=== PATIENT | female | born 1985 | race Caucasian/White ===

== ENCOUNTER 2018-05-10 10:04 | Emergency (ER) | payer MEDICAID ==
[~2018-05-10] VITALS: Ht 172.7 cm; Wt 79.4 kg
[2018-05-10 10:09] VITALS: Ht 172.7 cm; Wt 79.4 kg
[2018-05-10 11:40] LABS: BASOPHIL % 0.3 % (0-2); PLATELET COUNT 236 x10^3mcL (130-400); RED CELL DISTRIBUTION WIDTH 13.4 % (11.5-14.5)
[2018-05-10 13:28] VITALS: BP 116/78
== END 2018-05-10 14:04 | disposition home or self-care (01) ==
LOC: ED 10:04
PROVIDERS: Emergency Medicine
DX: N92.0 Excessive and frequent menstruation with regular cycle (principal); F17.200 Nicotine dependence, unspecified, uncomplicated
CPT/HCPCS: 36415; 99406